=== PATIENT | male | born 1945 | race Caucasian/White ===

== ENCOUNTER → 2017-03-26 | Outpatient (CLI) | payer MEDICARE, BC ==
[2017-03-26 10:57] LABS: Basophils % (A) 1 %; CH 32.3; CHCM 33.6; Eosinophils # (A) 0.3 k/uL (0-0.7); Eosinophils % (A) 5 %; HCT 46.5 % (39.0-53.0); HDW 2.26; HGB 15.4 gm/dL (13.0-17.5); Luc % (Auto) 2; Lymphocytes # (A) 1.5 k/uL (1.0-4.8); Lymphocytes % (A) 27 %; MCH 31.9 pg (25.0-35.0); MCV 96.5 fL (80.0-100.0); Mean Platelet Volume 7.2; Monocytes # (A) 0.5 k/uL (0-1.0); Monocytes % (A) 8 %; Neutrophils # (A) 3.2 k/uL (1.3-7.7); Neutrophils % (A) 57 %; RBC 4.82 m/uL (4.30-5.90); RDW 13.3 % (11.5-15.5); WBC 5.5 k/uL (3.8-10.6); WBC (Perox) 5.61
[2017-03-26 11:51] LABS: ALT 34 U/L (21-72); AST 24 U/L (17-59); Alkaline Phosphatase 30 U/L (38-126); Blood Urea Nitrogen 15 mg/dL (9-20); C Reactive Protein <5.0 mg/L (<10.0); Carbon Dioxide 24 mmol/L (22-30); Cholesterol 143 mg/dL (<200); Creatine Kinase 110 U/L (55-170); Glucose 94 mg/dL (74-99); HDL Cholesterol 47 mg/dL (40-60); Non-African American GFR(MDRD) >60 (>60 ml/min/1.73 sqM); Sodium 136 mmol/L (137-145); Total Bilirubin 0.5 mg/dL (0.2-1.3); Total Protein 6.4 g/dL (6.3-8.2); Uric Acid 4.6 mg/dL (3.5-8.5)
[2017-03-26 11:58] LABS: Anion Gap 9 mmol/L; Chloride 103 mmol/L (98-107)
[2017-03-26 12:09] LABS: Prostate Specific Antigen 1.24 ng/mL (0.00-4.00)
[2017-03-26 13:35] LABS: Erythrocyte Sedimentation Rate 3 mm/hr (0-15)
== END | disposition home or self-care (01) ==
LOC: LABWHC1 10:09
PROVIDERS: ATTEND Internal Medicine
DX: Z00.00 Encounter for general adult medical examination without abnormal findings (principal); E78.5 Hyperlipidemia, unspecified; I10 Essential (primary) hypertension; E55.9 Vitamin D deficiency, unspecified
CPT/HCPCS: 36415; 80053; 80061; 82306; 82550; 83036; 84153; 84443; 84550; 85025; 85652; 86140

== ENCOUNTER 2019-04-05 11:39 | Emergency (ER) | payer MEDICARE ==
[2019-04-05] MEDS ORDERED: SODIUM CHLORIDE 0.9% 1,000 ML IV STA (12:14)
[2019-04-05 12:35] VITALS: RESP 16
[2019-04-05 12:47] LABS: Basophils % (A) 0 %; Eosinophils # (A) 0.2 k/uL (0-0.7); Eosinophils % (A) 3 %; HCT 43.2 % (39.0-53.0); Lymphocytes # (A) 1.4 k/uL (1.0-4.8); Lymphocytes % (A) 18 %; MCHC 34.8 g/dL (31.0-37.0); MCV 92.1 fL (80.0-100.0); Mean Platelet Volume 6.1; Monocytes # (A) 0.5 k/uL (0-1.0); Monocytes % (A) 6 %; Neutrophils # (A) 5.5 k/uL (1.3-7.7); Neutrophils % (A) 72 %; Platelet Count 193 k/uL (150-450); RBC 4.69 m/uL (4.30-5.90); RDW 11.8 % (11.5-15.5); WBC 7.7 k/uL (3.8-10.6)
--- NOTE | 2019-04-05 12:47 | ED ---
Abdominal Pain HPI - General Chief Complaint: Abdominal Pain Stated Complaint: RT ABDOMINAL PAIN Time Seen by Provider: 04/05/19 12:04 Source: patient, RN notes reviewed Mode of arrival: ambulatory Limitations: no limitations - History of Present Illness Initial Comments: This is a 74-year-old male presents emergency Department with chief complaint of right-sided abdominal pain. He's had increase abdominal pain last few days. Patient is concerned as he had to obstructions in the past one was resolved by surgical intervention by Dr. Guzman. Patient has not had a recent colonoscopy no dysuria no hematuria. Patient states she's been very constipated he states he takes stool softener he was given take a laxative but is concerned that he may be developing an obstruction as he had the past. He states he does not feel bloated or distended like usual. No vomiting minimal nausea. - Related Data Home Medications Medication Instructions Recorded Confirmed Allopurinol 100 mg PO DAILY 05/25/15 05/25/15 Aspirin 81 mg PO DAILY 05/25/15 05/25/15 Aspirin 650 mg PO DAILY PRN 05/25/15 05/25/15 Cyanocobalamin [Vitamin B-12] 500 mcg PO DAILY@1200 05/25/15 05/25/15 Losartan [Cozaar] 50 mg PO DAILY 05/25/15 05/25/15 Multivitamin [Men's Multi-Vitamin] 1 tab PO DAILY 05/25/15 05/25/15 Omeprazole 20 mg PO DAILY 05/25/15 05/25/15 Allergies Allergy/AdvReac Type Severity Reaction Status Date / Time No Known Allergies Allergy Verified 05/25/15 21:35 Review of Systems ROS Statement: Those systems with pertinent positive or pertinent negative responses have been documented in the HPI. ROS Other: All systems not noted in ROS Statement are negative. Past Medical History Past Medical History: GERD/Reflux, Hypertension Additional Past Medical History / Comment(s): gout, bowel obstruction, History of Any Multi-Drug Resistant Organisms: None Reported Past Surgical History: Orthopedic Surgery Additional Past Surgical History / Comment(s): bowel obstruction repair, left hand surgery Past Anesthesia/Blood Transfusion Reactions: No Reported Reaction Past Psychological History: No Psychological Hx Reported Smoking Status: Never smoker Past Alcohol Use History: Occasional Past Drug Use History: None Reported - Past Family History Father Family Medical History: Cancer Additional Family Medical History / Comment(s): colon tumor Sister(s) Family Medical History: GERD/Reflux, Hypertension sister 2 Family Medical History: Cancer Additional Family Medical History / Comment(s): breast cancer General Exam Limitations: no limitations General appearance: alert, in no apparent distress Neck exam: Present: normal inspection. Absent: tenderness, meningismus, lymphadenopathy Respiratory exam: Present: normal lung sounds bilaterally. Absent: respiratory distress, wheezes, rales, rhonchi, stridor Cardiovascular Exam: Present: regular rate, normal rhythm, normal heart sounds. Absent: systolic murmur, diastolic murmur, rubs, gallop, clicks GI/Abdominal exam: Present: soft, tenderness (Mild right-sided), normal bowel sounds. Absent: distended, guarding, rebound, rigid Back exam: Absent: CVA tenderness (R), CVA tenderness (L) Neurological exam: Present: alert, oriented X3, CN II-XII intact Course Vital Signs 04/05/19 04/05/19 04/05/19 11:51 12:32 13:47 Temperature 98.1 F 97.4 F L Pulse Rate 60 51 L Respiratory 18 16 16 Rate Blood Pressure 126/78 136/79 O2 Sat by Pulse 98 98 Oximetry Medical Decision Making - Medical Decision Making CT shows no acute abnormality. Patient is in mild constipation. Labwork unremarkable. Patient will be discharged at this time. Return parameters were discussed. - Lab Data Result diagrams: 04/05/19 12:29 04/05/19 12:29 Lab Results 04/05/19 04/05/19 04/05/19 Range/Units 12:29 12:29 13:19 WBC 7.7 (3.8-10.6) k/uL RBC 4.69 (4.30-5.90) m/uL Hgb 15.0 (13.0-17.5) gm/dL Hct 43.2 (39.0-53.0) % MCV 92.1 (80.0-100.0) fL MCH 32.0 (25.0-35.0) pg MCHC 34.8 (31.0-37.0) g/dL RDW 11.8 (11.5-15.5) % Plt Count 193 (150-450) k/uL Neutrophils % 72 % Lymphocytes % 18 % Monocytes % 6 % Eosinophils % 3 % Basophils % 0 % Neutrophils # 5.5 (1.3-7.7) k/uL Lymphocytes # 1.4 (1.0-4.8) k/uL Monocytes # 0.5 (0-1.0) k/uL Eosinophils # 0.2 (0-0.7) k/uL Basophils # 0.0 (0-0.2) k/uL Sodium 137 (137-145) mmol/L Potassium 4.5 (3.5-5.1) mmol/L Chloride 106 (98-107) mmol/L Carbon Dioxide 22 (22-30) mmol/L Anion Gap 9 mmol/L BUN 20 (9-20) mg/dL Creatinine 1.16 (0.66-1.25) mg/dL Est GFR (CKD-EPI)AfAm 71 (>60 ml/min/1.73 sqM) Est GFR (CKD-EPI)NonAf 62 (>60 ml/min/1.73 sqM) Glucose 114 H (74-99) mg/dL Calcium 9.3 (8.4-10.2) mg/dL Total Bilirubin 0.8 (0.2-1.3) mg/dL AST 24 (17-59) U/L ALT 20 L (21-72) U/L Alkaline Phosphatase 34 L (38-126) U/L Total Protein 7.2 (6.3-8.2) g/dL Albumin 4.2 (3.5-5.0) g/dL Lipase 58 (23-300) U/L Urine Color Yellow Urine Appearance Clear (Clear) Urine pH 7.0 (5.0-8.0) Ur Specific [place] 1.017 (1.001-1.035) Urine Protein Negative (Negative) Urine Glucose (UA) Negative (Negative) Urine Ketones Negative (Negative) Urine Blood Negative (Negative) Urine Nitrite Negative (Negative) Urine Bilirubin Negative (Negative) Urine Urobilinogen <2.0 (<2.0) mg/dL Ur Leukocyte Esterase Negative (Negative) Disposition Clinical Impression: Abdominal pain, Constipation Disposition: HOME SELF-CARE Condition: Stable Instructions (If sedation given, give patient instructions): Abdominal Pain (ED) Additional Instructions: Please return to the Emergency Department if symptoms worsen or any other concerns. Is patient prescribed a controlled substance at d/c from ED?: No Referrals: Colten Prasad MD [Primary Care Provider] - 1-2 days Time of Disposition: 14:07
[2019-04-05 12:59] LABS: Albumin 4.2 g/dL (3.5-5.0); Calcium 9.3 mg/dL (8.4-10.2); Potassium 4.5 mmol/L (3.5-5.1); Total Bilirubin 0.8 mg/dL (0.2-1.3); Total Protein 7.2 g/dL (6.3-8.2)
[2019-04-05 13:29] LABS: Appearance,Urine Clear (Clear); Bilirubin,Urine Negative (Negative); Blood,Urine Negative (Negative); Color,Urine Yellow; Glucose,Urine (UA) Negative (Negative); Ketones,Urine Negative (Negative); Leukocyte Esterase,Urine Negative (Negative); Nitrite,Urine Negative (Negative); Protein,Urine Negative (Negative); Specific Gravity,Urine 1.017 (1.001-1.035); Urobilinogen,Urine <2.0 mg/dL (<2.0)
--- NOTE | 2019-04-05 13:38 | CT ---
EXAMINATION TYPE: CT abdomen pelvis w con DATE OF EXAM: 04/05/2019 COMPARISON: CT abdomen and pelvis May 28, 2015 HISTORY: right side pain, constipation CT DLP: 999 mGycm, Automated Exposure Control for Dose Reduction was Utilized. CONTRAST: CT scan of the abdomen and pelvis is performed with oral and with IV Contrast, patient injected with 80 mL of Isovue 300. FINDINGS: LUNG BASES: Bibasilar linear scarring and/or atelectasis. LIVER/GB: Liver is diffusely low dense consistent with fatty infiltration. PANCREAS: No significant abnormality is seen. SPLEEN: No significant abnormality is seen. ADRENALS: No significant abnormality is seen. KIDNEYS: Symmetric cord medullary uptake and excretion without hydronephrosis seen bilaterally. Simpl e appearing 5.3 cm thin-walled cyst posterior laterally mid pole level left kidney redemonstrated.. BOWEL: Evaluation of bowel suboptimal secondary to lack of enteric contrast. No suspicious small or l arge bowel dilatation. Normal-appearing appendix from cecum in the right lower quadrant. Diverticula and slightly redundant sigmoid colon most prominent proximal one half with additional diverticula thr oughout the left colon. No CT evidence for acute diverticulitis. Prostate gland: Upper limits of normal in size with adjacent left-sided phlebolith. LYMPH NODES: No greater than 1cm abdominal or pelvic lymph nodes are appreciated. OSSEOUS STRUCTURES: Facet arthropathy lower lumbar levels. OTHER: No significant additional abnormality is seen. IMPRESSION: No significant new or acute finding is seen to account for patient's clinical symptoms o f right-sided pain and constipation. No bowel obstruction is present.
[2019-04-05 13:47] VITALS: BP 136/79; PULSE 51; TEMP 97.4
== END 2019-04-05 14:10 | disposition home or self-care (01) ==
LOC: EC 11:39
DX: K59.00 Constipation, unspecified (principal); R11.0 Nausea; K21.9 Gastro-esophageal reflux disease without esophagitis; I10 Essential (primary) hypertension; M10.9 Gout, unspecified; Z79.82 Long term (current) use of aspirin; Z79.899 Other long term (current) drug therapy; Z87.19 Personal history of other diseases of the digestive system; Z98.890 Other specified postprocedural states; Z80.0 Family history of malignant neoplasm of digestive organs; Z83.79 Family history of other diseases of the digestive system
CPT/HCPCS: 36415; 80053; 83690; 85025; 81003; 74177; 99284; 96360; Q9967

== ENCOUNTER → 2019-04-08 | Outpatient (CLI) | payer MEDICARE ==
[2019-04-08 09:47] LABS: Basophils % (A) 0 %; Eosinophils # (A) 0.2 k/uL (0-0.7); Eosinophils % (A) 2 %; HGB 14.9 gm/dL (13.0-17.5); Lymphocytes # (A) 1.3 k/uL (1.0-4.8); Lymphocytes % (A) 19 %; MCH 31.6 pg (25.0-35.0); MCHC 33.1 g/dL (31.0-37.0); MCV 95.4 fL (80.0-100.0); Mean Platelet Volume 6.9; Monocytes # (A) 0.6 k/uL (0-1.0); Monocytes % (A) 9 %; Neutrophils # (A) 4.6 k/uL (1.3-7.7); Neutrophils % (A) 65 %; Platelet Count 186 k/uL (150-450); RBC 4.72 m/uL (4.30-5.90); RDW 11.9 % (11.5-15.5)
[2019-04-08 19:50] LABS: ALT 20 U/L (10-49); AST 21 U/L (14-35); African American GFR (CKD) 75.7 (60.0-200.0); Alkaline Phosphatase 43 U/L (41-126); BUN/Creat Ratio 15.45 Ratio (12.00-20.00); Calcium 8.9 mg/dL (8.7-10.3); Carbon Dioxide 27.5 mmol/L (21.6-31.8); Chloride 106 mmol/L (96-109); Chol/HDL Ratio 3.38; Cholesterol 135 mg/dL (0-200); Globulin 2.1 g/dL (1.6-3.3); Glucose 88 mg/dL (70-110); Non-African American GFR(CKD) 65.3 (60.0-200.0); Potassium 4.6 mmol/L (3.5-5.5); Sodium 140 mmol/L (135-145); Total Bilirubin 0.4 mg/dL (0.2-1.2); Total Protein 6.3 g/dL (6.2-8.2); Triglycerides <50.0 mg/dL (0.0-149.0); Uric Acid 4.3 mg/dL (3.7-8.7)
== END | disposition home or self-care (01) ==
LOC: LABWHC1 08:50
PROVIDERS: ATTEND Internal Medicine
DX: Z00.00 Encounter for general adult medical examination without abnormal findings (principal); E78.5 Hyperlipidemia, unspecified; I12.9 Hypertensive chronic kidney disease with stage 1 through stage 4 chronic kidney disease, or unspecified chronic kidney disease; N18.3 Chronic kidney disease, stage 3 (moderate); M10.9 Gout, unspecified; E87.8 Other disorders of electrolyte and fluid balance, not elsewhere classified; N40.0 Benign prostatic hyperplasia without lower urinary tract symptoms
CPT/HCPCS: 36415; 80053; 80061; 84153; 84550; 85025

== ENCOUNTER → 2019-06-12 | Outpatient (CLI) | payer MEDICARE ==
[2019-06-12 14:51] LABS: HCT 43.3 % (39.0-53.0); HGB 14.8 gm/dL (13.0-17.5); MCH 32.2 pg (25.0-35.0); MCHC 34.2 g/dL (31.0-37.0); MCV 94.2 fL (80.0-100.0); Mean Platelet Volume 7.2; Platelet Count 184 k/uL (150-450); RDW 12.2 % (11.5-15.5); WBC 5.4 k/uL (3.8-10.6)
--- NOTE | 2019-06-12 15:10 | XR ---
EXAMINATION TYPE: XR chest 2V DATE OF EXAM: 06/12/2019 COMPARISON: 11/24/2014 HISTORY: Bronchitis and pneumonia TECHNIQUE: Frontal and lateral views of the chest are obtained. FINDINGS: There is no focal air space opacity, pleural effusion, or pneumothorax seen. The cardiac silhouette size is within normal limits. The osseous structures are intact. Mild degenerative talam[place] es of the spine. IMPRESSION: No acute cardiopulmonary process.
[2019-06-12 15:24] LABS: Band Neutrophils % 2 %; Eosinophils # (M) 0.22 k/uL (0-0.7); Lymphocytes # (M) 1.67 k/uL (1.0-4.8); Monocytes # (M) 0.49 k/uL (0-1.0); Neutrophils % (M) 54 %; Nucleated Red Blood Cells 0 /100 WBC (0-0); Total Cells Counted 100
== END | disposition home or self-care (01) ==
LOC: RADXRMAIN 13:57
PROVIDERS: ATTEND Internal Medicine
DX: J06.9 Acute upper respiratory infection, unspecified (principal); J12.9 Viral pneumonia, unspecified
CPT/HCPCS: 71046; 85025

== ENCOUNTER → 2020-04-08 | Outpatient (CLI) | payer MEDICARE ==
[2020-04-08 10:07] LABS: Basophils % (A) 1 %; Eosinophils # (A) 0.3 k/uL (0-0.7); Eosinophils % (A) 7 %; HGB 14.5 gm/dL (13.0-17.5); Lymphocytes # (A) 1.3 k/uL (1.0-4.8); Lymphocytes % (A) 26 %; MCH 32.5 pg (25.0-35.0); MCHC 34.5 g/dL (31.0-37.0); MCV 94.1 fL (80.0-100.0); Mean Platelet Volume 7.1; Monocytes # (A) 0.3 k/uL (0-1.0); Monocytes % (A) 6 %; Neutrophils # (A) 2.9 k/uL (1.3-7.7); Neutrophils % (A) 58 %; Platelet Count 196 k/uL (150-450); RBC 4.46 m/uL (4.30-5.90); RDW 11.8 % (11.5-15.5); WBC 4.9 k/uL (3.8-10.6)
[2020-04-08 12:54] LABS: Erythrocyte Sedimentation Rate 2 mm/hr (0-15)
[2020-04-08 16:05] LABS: ALT 28 U/L (10-49); AST 28 U/L (14-35); African American GFR (CKD) 67.7 (60.0-200.0); Albumin/Globulin Ratio 1.95 (1.60-3.17); Alkaline Phosphatase 40 U/L (41-126); BUN/Creat Ratio 14.17 Ratio (12.00-20.00); C Reactive Protein <0.4 mg/dL (0.0-0.8); Carbon Dioxide 24.7 mmol/L (21.6-31.8); Chloride 107 mmol/L (96-109); Chol/HDL Ratio 3.05; Cholesterol 134 mg/dL (0-200); Globulin 2.1 g/dL (1.6-3.3); Glucose 94 mg/dL (70-110); LDL Cholesterol,Calculated 78.6 mg/dL (0.0-131.0); Magnesium 2.1 mg/dL (1.5-2.4); Non-African American GFR(CKD) 58.4 (60.0-200.0); Potassium 4.7 mmol/L (3.5-5.5); Sodium 137 mmol/L (135-145); Total Bilirubin 0.6 mg/dL (0.3-1.2); Total Protein 6.2 g/dL (6.2-8.2); Uric Acid 5.3 mg/dL (3.7-8.7)
== END | disposition home or self-care (01) ==
LOC: LABWHC1 08:21
PROVIDERS: ATTEND Internal Medicine
DX: Z00.00 Encounter for general adult medical examination without abnormal findings (principal); I10 Essential (primary) hypertension; E78.5 Hyperlipidemia, unspecified; D64.9 Anemia, unspecified; N40.0 Benign prostatic hyperplasia without lower urinary tract symptoms; E87.8 Other disorders of electrolyte and fluid balance, not elsewhere classified; M10.9 Gout, unspecified
CPT/HCPCS: 36415; 80053; 80061; 83735; 84153; 84443; 84550; 85025; 85652; 86140

== ENCOUNTER → 2020-05-05 | Outpatient (CLI) | payer MEDICARE ==
--- NOTE | 2020-05-05 13:26 | US ---
EXAMINATION TYPE: US groin RT DATE OF EXAM: 05/05/2020 COMPARISON: NONE CLINICAL HISTORY: 75-year-old male R59.9 LYMPHADENOPATHY. Groin lump. TECHNIQUE: Targeted ultrasound examination of the right inguinal region. FINDINGS: Clinic Md Associate note: No abnormalities visualized. Review of images shows no lymphadenopathy or abnormal fluid collection. IMPRESSION: No discrete sonographic abnormality identified upon scanning of the right inguinal region.
--- NOTE | 2020-05-05 13:28 | US ---
EXAMINATION TYPE: US groin LT DATE OF EXAM: 05/05/2020 COMPARISON: NONE CLINICAL HISTORY: 75-year-old male R59.9 LYMPHADENOPATHY. Left groin lump. TECHNIQUE: Sonographic images of the left inguinal region with particular attention to the palpable s ite. FINDINGS: There is a borderline sized solitary lymph node measuring 1.8 x 1.5 x 0.9 cm in the inguinal region o n the left. No other mass or abnormal fluid collection identified. IMPRESSION: Solitary borderline enlarged left inguinal lymph node corresponding to the palpable site measuring 1. 5 cm short axis. This is nonspecific and may be reactive/post inflammatory. Clinical follow-up recomm ended. If the lymph node persists or enlarges, the area can be rescanned.
== END | disposition home or self-care (01) ==
LOC: RADUSWWP 10:58
PROVIDERS: ATTEND Internal Medicine
DX: R59.0 Localized enlarged lymph nodes (principal); Z88.1 Allergy status to other antibiotic agents

== ENCOUNTER 2020-12-29 10:19 | Observation (INO) | payer MEDICARE ==
[2020-12-29] MEDS ORDERED: SODIUM CHLORIDE 0.9% 500 ML 500 ML IV STA (11:06)
--- NOTE | 2020-12-29 11:12 | ED ---
Dizziness HPI - General Chief Complaint: Dizziness Stated Complaint: Dizziness/Numbness on Lt Side Time Seen by Provider: 12/29/20 10:53 Source: patient, family, RN notes reviewed, old records reviewed Mode of arrival: wheelchair Limitations: no limitations - History of Present Illness Initial Comments: 75-year-old well-appearing white male, alert and oriented 4, presents to the emergency room with his family member complaining of intermittent left-sided numbness with lightheadedness. Patient states that on Sunday he was at a restaurant and had one beer. He states that when he got up to walk out of the restaurant he became lightheaded with some left-sided numbness including his arm and leg. Patient states he had to stand and wait just a few minutes to be able to walk but then resolved. He denies any headache at this time. Patient states that yesterday it happened again where he had left-sided numbness with lightheadedness again only lasting a few minutes. He states this is not happened to him before. He denies any head injuries or any loss of consciousness and he denies any headaches. He does take medicine for high blood pressure. He has no symptoms today MD Complaint: dizziness, lightheadedness, other (Left-sided numbness) -: days(s) (3) Timing: sudden onset, intermittent, now resolved Description: lightheadedness, near-syncope History of Same: No History of Trauma: No Worsens With: nothing Associated Symptoms: denies other symptoms - Related Data Home Medications Medication Instructions Recorded Confirmed Allopurinol 100 mg PO DAILY 05/25/15 12/29/20 Aspirin 81 mg PO DAILY 05/25/15 12/29/20 Cyanocobalamin [Vitamin B-12] 500 mcg PO DAILY 05/25/15 12/29/20 Multivitamin [Men's Multi-Vitamin] 1 tab PO DAILY 05/25/15 12/29/20 Losartan Potassium [Cozaar] 100 mg PO DAILY 12/29/20 12/29/20 amLODIPine [Norvasc] 5 mg PO HS 12/29/20 12/29/20 Allergies Allergy/AdvReac Type Severity Reaction Status Date / Time No Known Allergies Allergy Verified 12/29/20 12:12 Review of Systems ROS Statement: Those systems with pertinent positive or pertinent negative responses have been documented in the HPI. ROS Other: All systems not noted in ROS Statement are negative. Past Medical History Past Medical History: GERD/Reflux, Hypertension Additional Past Medical History / Comment(s): gout, bowel obstruction, History of Any Multi-Drug Resistant Organisms: None Reported Past Surgical History: Orthopedic Surgery Additional Past Surgical History / Comment(s): bowel obstruction repair, left hand surgery Past Anesthesia/Blood Transfusion Reactions: No Reported Reaction Past Psychological History: No Psychological Hx Reported Past Alcohol Use History: Occasional Past Drug Use History: None Reported - Past Family History Father Family Medical History: Cancer Additional Family Medical History / Comment(s): colon tumor Sister(s) Family Medical History: GERD/Reflux, Hypertension sister 2 Family Medical History: Cancer Additional Family Medical History / Comment(s): breast cancer General Exam Limitations: no limitations General appearance: alert, in no apparent distress Head exam: Present: atraumatic, normocephalic, normal inspection Eye exam: Present: normal appearance, PERRL, EOMI. Absent: scleral icterus, conjunctival injection, periorbital swelling ENT exam: Present: normal exam, normal oropharynx, mucous membranes moist Neck exam: Present: normal inspection, full ROM. Absent: tenderness, meningismus, lymphadenopathy, thyromegaly Respiratory exam: Present: normal lung sounds bilaterally. Absent: respiratory distress, wheezes, rales, rhonchi, stridor, decreased breath sounds Cardiovascular Exam: Present: bradycardia, normal heart sounds. Absent: JVD GI/Abdominal exam: Present: soft, normal bowel sounds. Absent: distended, tenderness, guarding, rebound, rigid Extremities exam: Present: normal inspection, full ROM, normal capillary refill. Absent: tenderness, pedal edema, joint swelling, calf tenderness Back exam: Present: normal inspection, full ROM. Absent: tenderness, CVA tenderness (R), CVA tenderness (L), muscle spasm, paraspinal tenderness, v ertebral tenderness, rash noted Neurological exam: Present: alert, oriented X3, CN II-XII intact Expanded Patient oriented to: Present: place, time. Absent: person Speech: Present: fluid speech Cranial nerves: EOM's Intact: Normal, Gag Reflex: Normal, Tongue Deviation: Normal Cerebellar function: Finger to Nose: Normal, Heel to [place]: Normal Motor strength exam: RUE: 5, LUE: 5, RLE: 5, LLE: 5 Eye Response: (4) open spontaneously Motor Response: (6) obeys commands Verbal Response: (5) oriented [place] Total: 15 Psychiatric exam: Present: normal affect, normal mood Skin exam: Present: warm, dry, intact, normal color. Absent: rash, cyanosis, diaphoretic, petechiae, pallor Course Vital Signs 12/29/20 10:31 Temperature 97.9 F Pulse Rate 58 L Respiratory 18 Rate Blood Pressure 134/74 O2 Sat by Pulse 98 Oximetry EKG Findings - EKG Results: EKG: sinus rhythm EKG shows: bradycardia (Ventricular rate 56, MD interval 0.126, QRS of 0.94, QTC of 0.401) Medical Decision Making - Medical Decision Making Chest x-ray is negative for any acute cardiopulmonary process. CT head shows no acute intracranial abnormality. CT a shows mild atherosclerotic narrowing within the right carotid siphon, no large vessel intracranial arterial occlusion significant stenosis or aneurysmal change seen. CT angiogram of the neck shows mild less than 20% stenosis to the proximal left ICA withhemodynamically significant carotid or vertebral spine arterial stenosis on either side. Troponin is negative at 0.012 EKG shows sinus bradycardia at 56. Patient will be admitted to the hospital to Dr. Prasad who requests vascular and neuro consults. Patient has been without paresthesias while in the emergency room setting. He has no focal neurological symptoms at this time. Case discussed with Dr. Lobo. - Lab Data Result diagrams: 12/29/20 12:05 12/29/20 12:05 Lab Results 12/29/20 12/29/20 12/29/20 Range/Units 12:05 12:05 12:05 WBC 6.4 (3.8-10.6) k/uL RBC 4.54 (4.30-5.90) m/uL Hgb 15.4 (13.0-17.5) gm/dL Hct 44.0 (39.0-53.0) % MCV 97.1 (80.0-100.0) fL MCH 34.0 (25.0-35.0) pg MCHC 35.0 (31.0-37.0) g/dL RDW 12.7 (11.5-15.5) % Plt Count 210 (150-450) k/uL MPV 7.3 Neutrophils % 62 % Lymphocytes % 23 % Monocytes % 8 % Eosinophils % 5 % Basophils % 1 % Neutrophils # 3.9 (1.3-7.7) k/uL Lymphocytes # 1.4 (1.0-4.8) k/uL Monocytes # 0.5 (0-1.0) k/uL Eosinophils # 0.3 (0-0.7) k/uL Basophils # 0.0 (0-0.2) k/uL PT 10.6 (9.0-12.0) sec INR 1.0 (<1.2) Sodium 136 L (137-145) mmol/L Potassium 4.6 (3.5-5.1) mmol/L Chloride 104 (98-107) mmol/L Carbon Dioxide 25 (22-30) mmol/L Anion Gap 7 mmol/L BUN 18 (9-20) mg/dL Creatinine 1.17 (0.66-1.25) mg/dL Est GFR (CKD-EPI)AfAm 70 (>60 ml/min/1.73 sqM) Est GFR (CKD-EPI)NonAf 60 (>60 ml/min/1.73 sqM) Glucose 95 (74-99) mg/dL Calcium 9.3 (8.4-10.2) mg/dL Total Bilirubin 0.6 (0.2-1.3) mg/dL AST 29 (17-59) U/L ALT 21 (4-49) U/L Alkaline Phosphatase 34 L (38-126) U/L Troponin I (0.000-0.034) ng/mL Total Protein 6.8 (6.3-8.2) g/dL Albumin 4.0 (3.5-5.0) g/dL Urine Color Urine Appearance (Clear) Urine pH (5.0-8.0) Ur Specific [place] (1.001-1.035) Urine Protein (Negative) Urine Glucose (UA) (Negative) Urine Ketones (Negative) Urine Blood (Negative) Urine Nitrite (Negative) Urine Bilirubin (Negative) Urine Urobilinogen (<2.0) mg/dL Ur Leukocyte Esterase (Negative) 12/29/20 12/29/20 Range/Units 12:05 13:34 WBC (3.8-10.6) k/uL RBC (4.30-5.90) m/uL Hgb (13.0-17.5) gm/dL Hct (39.0-53.0) % MCV (80.0-100.0) fL MCH (25.0-35.0) pg MCHC (31.0-37.0) g/dL RDW (11.5-15.5) % Plt Count (150-450) k/uL MPV Neutrophils % % Lymphocytes % % Monocytes % % Eosinophils % % Basophils % % Neutrophils # (1.3-7.7) k/uL Lymphocytes # (1.0-4.8) k/uL Monocytes # (0-1.0) k/uL Eosinophils # (0-0.7) k/uL Basophils # (0-0.2) k/uL PT (9.0-12.0) sec INR (<1.2) Sodium (137-145) mmol/L Potassium (3.5-5.1) mmol/L Chloride (98-107) mmol/L Carbon Dioxide (22-30) mmol/L Anion Gap mmol/L BUN (9-20) mg/dL Creatinine (0.66-1.25) mg/dL Est GFR (CKD-EPI)AfAm (>60 ml/min/1.73 sqM) Est GFR (CKD-EPI)NonAf (>60 ml/min/1.73 sqM) Glucose (74-99) mg/dL Calcium (8.4-10.2) mg/dL Total Bilirubin (0.2-1.3) mg/dL AST (17-59) U/L ALT (4-49) U/L Alkaline Phosphatase (38-126) U/L Troponin I <0.012 (0.000-0.034) ng/mL Total Protein (6.3-8.2) g/dL Albumin (3.5-5.0) g/dL Urine Color Yellow Urine Appearance Clear (Clear) Urine pH 7.0 (5.0-8.0) Ur Specific [place] 1.020 (1.001-1.035) Urine Protein Negative (Negative) Urine Glucose (UA) Negative (Negative) Urine Ketones Negative (Negative) Urine Blood Negative (Negative) Urine Nitrite Negative (Negative) Urine Bilirubin Negative (Negative) Urine Urobilinogen <2.0 (<2.0) mg/dL Ur Leukocyte Esterase Negative (Negative) Disposition Clinical Impression: TIA (transient ischemic attack), Near syncope Disposition[facility] Condition: Good Decision Date: 12/29/20 Decision Time: 14:43
[2020-12-29 12:20] LABS: Basophils % (A) 1 %; Eosinophils # (A) 0.3 k/uL (0-0.7); Eosinophils % (A) 5 %; HGB 15.4 gm/dL (13.0-17.5); Lymphocytes # (A) 1.4 k/uL (1.0-4.8); Lymphocytes % (A) 23 %; MCV 97.1 fL (80.0-100.0); Mean Platelet Volume 7.3; Monocytes # (A) 0.5 k/uL (0-1.0); Monocytes % (A) 8 %; Neutrophils # (A) 3.9 k/uL (1.3-7.7); Neutrophils % (A) 62 %; Platelet Count 210 k/uL (150-450); RBC 4.54 m/uL (4.30-5.90); RDW 12.7 % (11.5-15.5); WBC 6.4 k/uL (3.8-10.6)
[2020-12-29 12:28] LABS: Prothrombin Time 10.6 sec (9.0-12.0)
[2020-12-29 12:34] LABS: Calcium 9.3 mg/dL (8.4-10.2); Potassium 4.6 mmol/L (3.5-5.1); Total Bilirubin 0.6 mg/dL (0.2-1.3); Total Protein 6.8 g/dL (6.3-8.2)
--- NOTE | 2020-12-29 13:34 | XR ---
EXAMINATION TYPE: XR chest 2V DATE OF EXAM: 12/29/2020 COMPARISON: 06/12/2019 HISTORY: Shortness of breath TECHNIQUE: Frontal and lateral views of the chest are obtained. FINDINGS: Scattered senescent parenchymal changes noted. Hyperinflation compatible with COPD. No evidence for infiltrate. No evidence for atelectasis. Heart size is stable. Mediastinal structures are stable and grossly unremarkable. No evidence for hilar prominence. Degenerative changes dorsal spine. IMPRESSION: 1. No evidence for acute pulmonary disease.
--- NOTE | 2020-12-29 14:03 | CT ---
EXAMINATION TYPE: CT head without contrast CT angio head neck DATE OF EXAM: 12/29/2020 COMPARISON: None HISTORY: 75-year-old male with TIA, Numbness on left side body, dizziness TECHNIQUE: Contiguous axial scanning of the head initially without IV contrast. Subsequent scanning o f the head and neck performed with IV Contrast, patient injected with 65 mL of Isovue 370. Coronal/sa gittal MIP reconstructions performed. 3-D reconstructions generated on a dedicated workstation. CT DLP: 1620.5 mGycm Automated exposure control for dose reduction was used. FINDINGS: CT HEAD WITHOUT CONTRAST: No evidence for acute intracranial hemorrhage, acute ischemic change, mass, mass effect, midline shif t, or extra-axial fluid collection. No hydrocephalus. No effacement of cerebral sulci or basal subara chnoid cisterns. Schmitt-white matter differentiation is maintained. Moderate mucosal thickening posterior ethmoid air cells on both sides. Rightward nasal septal deviati on. Orbits and globes are intact. CTA HEAD: Both vertebral arteries are patent. The V4 segment right vertebral artery after the PICA takeoff beco mes hypoplastic. Basilar artery is patent. Hypoplastic P1 segment left posterior cerebral artery with a persistent origin. Otherwise, the posterior circulation is patent. Mild atherosclerotic narrowing within the cavernous right internal carotid artery. Otherwise, the internal carotid arteries are patent as is the remainder of the anterior circulation. No aneurysmal change is identified. CTA NECK: Conventional arch was a branching anatomy. The bilateral vertebral artery origins are patent. The ves sels are codominant and patent throughout their course. The right common carotid artery is patent. Mild atherosclerotic change at the right carotid bulb. No significant narrowing is identified. The left common carotid artery is patent. There is mild atherosclerotic plaque and calcification within the proximal left internal carotid natalie ry with mild, less than 20% narrowing proximal left ICA. NASCET criteria was utilized. IMPRESSION: HEAD: 1. NO ACUTE INTRACRANIAL ABNORMALITY SEEN. CTA HEAD: 2. SOME CONGENITAL VARIATION MENTIONED ABOVE. 3. THERE IS MILD ATHEROSCLEROTIC NARROWING WITHIN THE RIGHT CAROTID SIPHON. OTHERWISE, NO LARGE VESSE L INTRACRANIAL ARTERIAL OCCLUSION, SIGNIFICANT STENOSIS, OR ANEURYSMAL CHANGE IS SEEN. CTA NECK: 4. 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 5. NO HEMODYNAMICALLY SIGNIFICANT CAROTID OR VERTEBRAL ARTERY STENOSIS ON EITHER SIDE.
[2020-12-29 14:12] LABS: Appearance,Urine Clear (Clear); Bilirubin,Urine Negative (Negative); Blood,Urine Negative (Negative); Color,Urine Yellow; Glucose,Urine (UA) Negative (Negative); Ketones,Urine Negative (Negative); Leukocyte Esterase,Urine Negative (Negative); Nitrite,Urine Negative (Negative); Protein,Urine Negative (Negative); Urobilinogen,Urine <2.0 mg/dL (<2.0)
[2020-12-29] MEDS ORDERED: NALOXONE 0.4 MG/ML 1 ML VIAL IV PRN (15:55)
[2020-12-29] MEDS ORDERED: ACETAMINOPHEN TAB 325 MG TAB PO PRN (15:55)
[2020-12-29] MEDS ORDERED: CLOPIDOGREL 75 MG TAB PO STA (16:22)
[2020-12-29] MEDS ORDERED: allopurinoL 100 MG TAB PO SCH (16:30)
--- NOTE | 2020-12-29 18:14 | HP ---
HISTORY AND PHYSICAL HISTORY AND PHYSICAL ON OBSERVATION STATUS: DATA: Height is 5 feet 11 inches, weight 83.915 kg, his BSA is 2.04 m2 and BMI 25.8 kg/m2. ALLERGIES: Unknown. CHIEF COMPLAINT: The patient had recurrent incident of dizziness and feeling numb in his left upper arm and lower arm and recurrent occurred on Sunday and occurred again subsequently on the golf course, on Sunday he was on his boat. HISTORY OF PRESENT ILLNESS: Mr. Hays who is a 75-year-old white male and has a specific experience and that has not happen before. He was out boating with his boat and he has also a few friends on the boat and he anchored in [place] and went to the restaurant and subsequently while he was in the restaurant, he felt that his left arm and left leg numb and he become dizzy as well and felt that he is slight clumsy. He did not think of it much and went away and it took few minutes and recovered. He returned back to [place]. Yesterday he had the second recurrence of his events and he had the same place, his left upper arm and left lower extremities and he felt even at that time, clumsy, and he could not do his play the game on the golf course and he was missing as it is his unusual. His feeling of numbness and tingling and unstable on the feet lasted about 1 hour to half an hour and then recovered. 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 Also found that he has both vertebral arteries are patent, but the V4 segment on the right vertebral artery after the PICA takeoff become hypoplastic. Apparently the patient has some abnormalities with [place] in the brain and with the recurrent TIA. With that purpose, the patient admitted as observation with the consultation of the vascular surgeon as well as consultation with the Neurology, Dr. Paul, the neurology hospitalist. Request was ordered today on December 29. Meanwhile, as I discussed with the patient in detail, we will be starting him on Plavix temporary until seen by done by the neurologist as well as a vascular surgeon and if there is any adding or subtracting. On this admission as vital signs indicating that his blood pressure on arrival 134/74 with the temperature 97.9 orally and heart rate was 58 beats per minute and respiratory rate was 18 and the oxygen was 98%. Subsequently the blood pressure went up to 160/85, but he did not take his medication. We will be reordering his medication. PAST MEDICAL HISTORY: He had history of hypertension, history of gouty attack, history of other history hypertension, which has been fairly controlled. Past medical history also he had history of abdominal pain. History of small bowel obstruction and history of near syncopal episode and TIA in the past, but this feeling is new to him. His vaccination: He had history of influenza vaccine and vaccination and pneumonia vaccine 23 in 2015 according to the record of the hospital, but also he had vaccination after that, but it is not available to me at this time of dictation. SOCIAL HISTORY: He never smoked in the past. REVIEW OF SYSTEM: NEUROPSYCHIATRY: He has no history of depression or anxiety. CARDIOVASCULAR: No evidence of heart attack or IA or angina in the past. He had history of bradycardia and will be obtaining echocardiogram. Meanwhile to see if any other abnormalities encountered. He had a tetanus vaccine and diphtheria and he has also influenza vaccine and pneumococcal vaccine. RESPIRATORY: No cough or expectoration and no smoking. GI: No diarrhea or abdominal pain. He had history of constipation, resolved with the OTC treatment. MUSCULOSKELETAL: No symptoms except the recent symptoms with feeling numbness on the left side of the upper arm and leg, which is recurrent and feeling dizzy and unsteady gait. The rest of the 14 bullets were negative. No added to the treatment. On the current discussion and physical exam in the ER room 22: After discussion and evaluation, and I gave him the option and with my recommendation to stay in the hospital for the observation and further testing needs to be done to evaluation of [place] of the brain, as well as the carotid duplex study as well as the echocardiogram and MRI of the brain to clarify with contrast. PHYSICAL EXAMINATION: Patient is at the time of the exam his vital signs stable and no hypotension and no postural changes and his numbness and tingling in the left upper extremity and lower extremities resolved and there is no currently sensory or motor deficits. His head was normocephalic, atraumatic. The pupils equal, reactive. Conjunctivae were pink. Sclerae were nonicteric. Extraocular muscle movement was intact. Oropharynx natural teeth and hearing are normal. NECK was supple. No JVD. No thyromegaly. No lymphadenopathy and trachea midline. CHEST was clear to auscultation and percussion. No wheezes, no rhonchi. HEART: PMI in the 5th intercostal space. Normal S1, S2. No gallop. ABDOMEN was soft, nontender, positive bowel sounds. EXTREMITIES: Good perfusion bilaterally and no edema and he had history of mild arthritis and history of gout in the past. No acute event at this time. ASSESSMENT: Recurrent episodic transient ischemic attack which lasts a few minutes to [address] angiogram was abnormal with the abnormalities in the posterior cerebral arteries as well as the vertebral arteries and however I do not see any comment on the carotid arteries in the report and we will be obtaining as well the carotid duplex study as well as consultation with Dr. Brasher as well as consultation with the neurologist. Starting also on Plavix added to 75 mg once a day as well as add 81 mg of aspirin until seen by the consulting and further investigation needed or stability of the patient or for further findings. MMODL / IJN: [id number] /
[2020-12-29] MEDS: SODIUM CHLORIDE 0.9% 1,000 ML IV SCH ×2 (19:00→21:34)
[2020-12-29] MEDS ORDERED: amLODIPine 5 MG TAB PO SCH (21:00)
--- NOTE | 2020-12-29 21:50 | US ---
EXAMINATION TYPE: US carotid duplex BILAT DATE OF EXAM: 12/29/2020 COMPARISON: CT CLINICAL HISTORY: TIA, dizziness.. TIA, dizziness, hypertension. EXAM MEASUREMENTS: RIGHT: Peak Systolic Velocity (PSV) cm/sec ----- Right CCA: 73.2 ----- Right ICA: 83.9 ----- Right ECA: 70.9 ICA/CCA ratio: 1.1 RIGHT: End Diastole cm/sec ----- Right CCA: 13.8 ----- Right ICA: 22.3 ----- Right ECA: 5.5 LEFT: Peak Systolic Velocity (PSV) cm/sec ----- Left CCA: 90.5 ----- Left ICA: 94.9 ----- Left ECA: 89.4 ICA/CCA ratio: 1.0 LEFT: End Diastole cm/sec ----- Left CCA: 14.6 ----- Left ICA: 20.1 ----- Left ECA: 8.0 VERTEBRALS (direction of flow): Right Vertebral: Antegrade Left Vertebral: Antegrade Rhythm: Normal Intimal thickening bilaterally. Minimal plaque seen in right carotid bulb and left ICA. No elevated v elocities at this time. Incidentally seen normal right neck lymph node. IMPRESSION: No hemodynamically significant stenosis. Any stenosis that may be present is less than 50%. NASCET criteria was used in interpretation of this exam? Criteria for Assigning % of Stenosis / Diameter reduction (Estimation based on the indirect measurements of the internal carotid artery velocities (ICA PSV). 1. Normal (no stenosis)=ICA PSV < 125 cm/s: ratio < 2.0: ICA EDV<40 cm/s. 2. Less than 50% stenosis=ICA PSV < 125 cm/s: ratio < 2.0: ICA EDV<40 cm/s. 3. 50 to 69% stenosis=ICA PSV of 125 to 230 cm/s: ration 2.0 ? 4.0: ICA EDV 40-100 cm/s. 4. Greater than 70% stenosis to near occlusion= ICA PSV > 230 cm/s: ratio > 4.0: ICA EDV > 100 cm/s. 5. Near occlusion= ICA PSV velocities may be low or undetectable: variable ratio and ICA EDV. 6. Total occlusion=unable to detect flow.
--- NOTE | 2020-12-29 22:14 | MR ---
EXAMINATION TYPE: MR brain and iac wo/w con DATE OF EXAM: 12/29/2020 COMPARISON: None HISTORY: TIA, posterior circulation stenosis, right carotid. CONTRAST: Standard multiplanar, multisequence MRI departmental protocol utilizing 8 mL intravenous Gadavist elizabeth olinium contrast. There is cerebral cortical atrophy. There is no mass effect nor midline shift. There is no evidence o f intracranial hemorrhage. Diffusion images show no evidence of an acute infarct. The corpus callosum is intact. Brainstem appears intact. There is no evidence of orbital mass. Sella turcica appears normal. Images through the posterior fossa show normal internal auditory canals. The acoustic nerve and vesti bular nerves appear normal. There is no evidence of cerebellopontine angle mass. Contrast images show no pathologic enhancement. There is normal enhancement of the venous sinuses. Op tic chiasm appears normal. IMPRESSION: There is mild cerebral atrophy. Otherwise negative MR scan of the brain. No focal infarct.
[2020-12-30 03:26] VITALS: RESP 15
--- NOTE | 2020-12-30 07:28 | ECHOF ---
Referral Reason:Bradycardia, TIA. Hypertension MEASUREMENTS -------- HEIGHT: 180.3 cm WEIGHT: 83.9 kg BP: 160/85 RVIDd: 3.1 cm (< 3.3) IVSd: 1.1 cm (0.6 - 1.1) LVIDd: 4.8 cm (3.9 - 5.3) LVPWd: 1.1 cm (0.6 - 1.1) IVSs: 1.6 cm LVIDs: 3.3 cm LVPWs: 1.6 cm LA Diam: 3.9 cm (2.7 - 3.8) LAESV Index (A-L): 32.08 ml/m Ao Diam: 3.4 cm (2.0 - 3.7) AV Cusp: 2.1 cm (1.5 - 2.6) MV EXCURSION: 12.703 mm (> 18.000) MV EF SLOPE: 71 mm/s (70 - 150) EPSS: 0.9 cm MV E Alex: 0.97 m/s MV DecT: 244 ms MV A Alex: 0.97 m/s MV E/A Ratio: 1.00 AR PHT: 605 ms RAP: 5.00 mmHg RVSP: 38.07 mmHg FINDINGS -------- The left ventricular size is normal. There is borderline concentric left ventricular hypertrophy. Overall left ventricular systolic function is normal with, an EF between 60 - 65 %. The right ventricle is normal in size. LA is midly dilated 29-33ml/m2. The right atrium is normal in size. Interatrial and interventricular septum intact. There is mild aortic valve sclerosis. There is mild aortic regurgitation. The mitral valve leaflets are mildly thickened. Mild mitral annular calcification present. Mild m itral regurgitation is present. Mild tricuspid regurgitation present. There is mild pulmonary hypertension. The right ventricular systolic pressure, as measured by Doppler, is 38.07mmHg. Trace/mild (physiologic) pulmonic regurgitation. The aortic root size is normal. Normal inferior vena cava with normal inspiratory collapse consistent with estimated right atrial pre ssure of 5 mmHg. There is no pericardial effusion. CONCLUSIONS -------- 1. The left ventricular size is normal. 2. There is borderline concentric left ventricular hypertrophy. 3. Overall left ventricular systolic function is normal with, an EF between 60 - 65 %. 4. LA is midly dilated 29-33ml/m2. 5. There is mild aortic valve sclerosis. 6. There is mild aortic regurgitation. 7. The mitral valve leaflets are mildly thickened. 8. Mild mitral annular calcification present. 9. Mild mitral regurgitation is present. 10. Mild tricuspid regurgitation present. 11. There is mild pulmonary hypertension. 12. The right ventricular systolic pressure, as measured by Doppler, is 38.07mmHg. 13. Trace/mild (physiologic) pulmonic regurgitation. 14. There is no pericardial effusion. GREEN MARKETER: MYAH Abdi
[2020-12-30 08:14] VITALS: BP 142/71; PULSE 52; TEMP 97.7
[2020-12-30] MEDS ORDERED: allopurinoL 100 MG TAB PO SCH (09:00)
[2020-12-30] MEDS ORDERED: ASPIRIN 81 MG PO SCH (09:00)
[2020-12-30] MEDS ORDERED: MULTIVITAMINS, THERA 1 EACH TAB PO SCH (09:00)
[2020-12-30] MEDS ORDERED: LOSARTAN 50 MG TAB PO SCH (09:00)
[2020-12-30] MEDS ORDERED: CYANOCOBALAMIN 500 MCG TAB PO SCH (09:00)
[2020-12-30] MEDS ORDERED: CLOPIDOGREL 75 MG TAB PO STA (12:51)
--- NOTE | 2020-12-30 13:11 | CONS ---
CONSULTATION Mr. Hays is a 75-year-old gentleman who has been admitted to [facility]. Patient had an episode of left arm and left leg numbness and he became dizzy. This happened a few times. No history of vision loss or speech problems. He had a complete stroke workup, including CT scan of the carotids, which noted no hemodynamically significant stenosis. The patient also had a CT of the brain which showed a hyperplastic segment of the left posterior cerebral artery and vertebral artery has at V4 segment. Apparently the patient has some abnormality with the [place] with recurrent TIA. MEDICAL HISTORY: The patient has a history of hypertension, history of a gouty attack in the past, history of hypertension which is controlled with medication. The patient also has a history of abdominal pain and small bowel obstruction in the past. SOCIAL HISTORY: He never smoked. PHYSICAL EXAMINATION: Patient was seen in his room. NECK: Supple. No bruit appreciated. CHEST: Clear. ABDOMEN: Soft. Femorals are present. Patient has normal motor function in upper and lower extremities. PLAN: At this point, small plaque is noted in the carotid arteries; no hemodynamically significant stenosis. Most of his symptoms came from the [place]. The patient will be seen by the neurologist. Discussed with Dr. Prasad in detail. The patient is on Plavix. We will follow with you. MMODL / IJN: [id number] /
--- NOTE | 2020-12-30 13:24 | P.DS ---
Providers Date of admission: 12/29/20 14:14 Expected date of discharge: 12/30/20 (TIA, recurrent dizziness, posterior ci rculation and normally) Attending physician: Colten Prasad Consults: 12/29/20 15:56 Consult Physician Urgent Consulting Provider: Jesus Paul Consult Reason/Comments: tia Do you want consulting provider notified?: Yes Consult Physician Urgent Consulting Provider: Julio Brasher Consult Reason/Comments: tia Do you want consulting provider notified?: Yes Primary care physician: Colten Prasad Visit the discharge summary date of service 12/30/2020. Admission on 12/29/2020 discharge on 12/30/2020. Observation status. Final diagnosis: #1 TIAs #2 recurrent dizziness #3 and normally of the posterior circulation. Consulting physician: #1 Dr. Carmona vascular surgeon. #2 Dr. Ames the inpatient neurologist. Testing done: #1 chest x-ray in the ER #2 angiogram of the head and brain #3 ultrasound of the carotid bilateral #4 echocardiogram. #5 MRI of brain. For further investigation not needed. Consulting physician. Presentation in the ER: Recurrent dizziness with near syncope. Hospital course: Patient admitted on observation status with monitoring for for further episodes of dizziness or advances on the TIA, with the underlying history near syncopal episode as well as TIA and recurrent dizziness. Patient had further investigation as mentioned above and the consultation with the neurologist and vascular surgeon. Patient has no symptoms at the time of the exam and no residual effect neurologically, and vital signs stable. Exam on discharge: Patient has no for further symptoms, he is able to go to the bathroom without dizziness, no evidence of postural hypotension, his at bedside. Discussed with him the future plan and the discharge. On exam: Head was normocephalic and atraumatic pupil was equal reactive conjunctiva was pink sclera was nonicteric extraocular muscle movement intact Oropharynx was normal able to eat and swallow with no abnormalities Neck was supple no JVD no thyromegaly no lymphadenopathy trachea midline. Chest was clear to auscultation and percussion and Heart was regular sinus rhythm and his echo cardiogram indicating good ejection fraction minimal valvular heart disease. Abdomen is soft positive bowel sounds no tenderness in the 4 quadrant no palpable masses. Extremities no edema and positive pulses and normal lower extremities and upper extremities with normal reflexes. Neurologically: No lateralizing sign and no tremor and no neuro deficit. Assessment: Patient stable general condition with the underlying above diagnosis associated with also near syncopal episode the monitor car operator was negative for arrhythmia, Seen by the neurologist discussed with them Dr. Ames the finding and no further testing needed, he recommended to continue with the Plavix 75 mg daily and discontinue the aspirin and we discussed the lipid profile and his last lipid profile was 78 and he preferred that to be below 70 and for that reason patient started on atorvastatin "Lipitor " 10 mg at at bedtime patient will have soon complete physical and he has at that time the repeat of his lipid profile and we'll be checking his level at this time. Plan: Patient will be discharged home today with a new prescription sent to [facility] for the atorvastatin 10 mg at at bedtime 30 with 3 refills as well he is on started on Plavix 75 mg once a daily with 30 and 3 refills, and discontinuation of aspirin the recommendation of Dr. Ames the neurologist Follow-up evaluation in 3-5 days next week for follow-up post discharge from the hospital. Patient Condition at Discharge: Good Plan - Discharge Summary Discharge Rx Participant: No New Discharge Prescriptions: New Atorvastatin Calcium [Lipitor] 10 mg PO HS #30 tab Clopidogrel [Plavix] 75 mg PO ONCE #30 tab Acetaminophen Tab [Tylenol] 650 mg PO Q6HR PRN tab PRN Reason: Mild Pain Or Fever > 100.5 Continue Allopurinol 100 mg PO DAILY Multivitamin [Men's Multi-Vitamin] 1 tab PO DAILY Cyanocobalamin [Vitamin B-12] 500 mcg PO DAILY Losartan Potassium [Cozaar] 100 mg PO DAILY amLODIPine [Norvasc] 5 mg PO HS Discontinued Aspirin 81 mg PO DAILY Discharge Medication List Allopurinol 100 mg PO DAILY 05/25/15 [History] Cyanocobalamin [Vitamin B-12] 500 mcg PO DAILY 05/25/15 [History] Multivitamin [Men's Multi-Vitamin] 1 tab PO DAILY 05/25/15 [History] Losartan Potassium [Cozaar] 100 mg PO DAILY 12/29/20 [History] amLODIPine [Norvasc] 5 mg PO HS 12/29/20 [History] Acetaminophen Tab [Tylenol] 650 mg PO Q6HR PRN tab 12/30/20 [Rx] Atorvastatin Calcium [Lipitor] 10 mg PO HS #30 tab 12/30/20 [Rx] Clopidogrel [Plavix] 75 mg PO ONCE #30 tab 12/30/20 [Rx] Follow up Appointment(s)/Referral(s): Colten Prasad MD [Primary Care Provider] - 1 Week
--- NOTE | 2020-12-30 13:41 | P.CNNES ---
History of Present Illness Consult date: 12/30/20 Requesting physician: Fortunato Ghosh Reason for Consult: TIA History of Present Illness: Patient is a 75-year-old male came to the hospital yesterday at 10:19 AM for 2 episodes of left arm and leg paresthesias and dizziness. Patient states that the first episode occurred on Sunday when he was at a restaurant with his frie nds. They had lunch, and he drank 1 beer. It was a hot day. While he was at the restaurant, he felt dizzy, and then his left foot became numb and tingling, that extended to the left leg, the left side of the chest arm and hand, and he felt he will fall down. These paresthesias lasted for about 2-3 minutes, but the lightheadedness and dizziness lasted for another 45 minutes. He could still walk and went out of the restaurant. He did not make much of these symptoms. On 12/28/2020, 2 days later, he was golfing. It was a hot day and he was hydrated, as he has drank Gatorade. While golfing, he had a similar episode, which lasted for about 20-90 seconds. It was not as bad and subsided. He was still able to finish the golf. Next morning he spoke to his primary physician who recommended him to go to the ER. At present he has no symptoms whatsoever. Vital signs on arrival blood pressure 134/74, pulse rate 58, temperature 97.9. Computed tomography scan of the head showed no acute process. CTA of the head showed some congenital variation. There is mild atherosclerotic narrowing within the right carotid siphon. Otherwise, no large vessel intracranial arterial occlusion, significant stenosis or aneurysmal changes seen. CTA of the neck showed mild, less than 20% stenosis proximal left ICA. No hemodynamically significant carotid or vertebral artery stenosis on either side. EKG shows sinus bradycardia. CBC is normal, PT/PTT normal. Chem-7 with sodium 136, norm al renal functions. Normal hepatic panel, and troponin. UA negative. Patient's last hemoglobin A1c 5.3 on 03/26/2017. B12 978. Patient has hypertension for last 15 years, denies diabetes. He never smoked. He does not drink on a regular basis. He does not drink a lot of water as per his . Patient's home medications include allopurinol, multivitamin, B12, aspirin 81 mg, losartan and amlodipine. Review of Systems Completely unremarkable at this time. All 14 point of review systems reviewed and unremarkable. Past Medical History Past Medical History: GERD/Reflux, Hypertension Additional Past Medical History / Comment(s): gout, bowel obstruction, History of Any Multi-Drug Resistant Organisms: None Reported Past Surgical History: Orthopedic Surgery Additional Past Surgical History / Comment(s): bowel obstruction repair, left hand surgery Past Anesthesia/Blood Transfusion Reactions: No Reported Reaction Past Psychological History: No Psychological Hx Reported Smoking Status: Never smoker Past Alcohol Use History: Occasional Past Drug Use History: None Reported - Past Family History Father Family Medical History: Cancer Additional Family Medical History / Comment(s): colon tumor Sister(s) Family Medical History: GERD/Reflux, Hypertension sister 2 Family Medical History: Cancer Additional Family Medical History / Comment(s): breast cancer Medications and Allergies Home Medications Medication Instructions Recorded Confirmed Type Allopurinol 100 mg PO DAILY 05/25/15 12/29/20 History Cyanocobalamin [Vitamin B-12] 500 mcg PO DAILY 05/25/15 12/29/20 History Multivitamin [Men's Multi-Vitamin] 1 tab PO DAILY 05/25/15 12/29/20 History Losartan Potassium [Cozaar] 100 mg PO DAILY 12/29/20 12/29/20 History amLODIPine [Norvasc] 5 mg PO HS 12/29/20 12/29/20 History Acetaminophen Tab [Tylenol] 650 mg PO Q6HR PRN tab 12/30/20 Rx Atorvastatin Calcium [Lipitor] 10 mg PO HS #30 tab 12/30/20 Rx Clopidogrel [Plavix] 75 mg PO ONCE #30 tab 12/30/20 Rx Allergies Allergy/AdvReac Type Severity Reaction Status Date / Time No Known Allergies Allergy Verified 12/29/20 12:12 Physical Examination - Vital Signs Vital Signs: Vital Signs Temp Pulse Pulse Resp BP BP Pulse Ox 12/30/20 09:03 95 12/30/20 08:00 15 12/30/20 07:00 97.7 F 52 L 18 142/71 96 12/30/20 01:12 98.0 F 51 L 15 129/65 95 12/29/20 22:35 97.8 F 52 L 16 124/68 96 12/29/20 16:26 98.1 F 54 L 17 160/85 97 12/29/20 13:35 18 12/29/20 12:35 57 L 17 147/77 Intake and Output 12/29/20 12/30/20 12/30/20 22:59 06:59 14:59 Intake Total 240 Balance 240 Intake: Oral 240 Other: Weight 83.915 kg Patient is an elderly male, in no acute distress. Patient is alert awake oriented to time place and person. Speech and language functions are normal. Attention, concentration and fund of knowledge is adequate. No aphasia or dysarthria. On cranial examination, pupils are equal in size, round and reacting to light, visual castellano are full on confrontation, extraocular muscles are intact with no nystagmus. Face is symmetric, tongue protrudes to the midline. Palatal elevation and sensation normal, hearing and shoulder shrug normal, facial sensation normal. Shoulder shrug normal. On muscle strength testing, there is no pronator drift and the strength is normal in arms and legs distally and proximally. Deep tendon reflexes are 1 in the upper limbs and lower limbs and plantars downgoing bilaterally. Sensory to touch is equal with no neglect on double simultaneous stimulation. Cerebellar function showed no ataxia for [id number] testing. No dysdiadochokinesia. Tone and bulk of muscles normal. Gait normal. On general examination, there is no carotid bruit or murmur, S1-S2 audible. Abdomen is soft nontender. Chest is clear. Peripheral pulses are present. No edema. Results - Laboratory Findings CBC and BMP: 12/29/20 12:05 12/29/20 12:05 Abnormal Lab Findings: Abnormal Labs 12/29/20 12:05 Sodium 136 L Alkaline Phosphatase 34 L Assessment and Plan Assessment: * Recurrent TIA 2, manifesting with transient left-sided paresthesias. * Hypertension Plan: * At present patient has no symptoms. All symptoms have resolved. Patient has failed aspirin regimen. I would switch from aspirin regimen to Plavix 75 mg daily. * Patient's last lipid panel from 04/08/2020 performed at his primary physician's office shows total cholesterol 134, LDL 78.8, HDL 44 and triglycerides 57. Patient does have cholesterol plaque buildup in the carotid vasculature (as per report of CTA head and neck), therefore I would suggest target LDL <70. Patient will be started on Lipitor 10 mg daily. * 2-D echo showed normal left-ventricular size, borderline concentric LVH, EF is between 60-65%. Left atrium is mildly dilated. Mild aortic valve sclerosis. * Carotid Doppler showed no hemodynamically significant stenosis. Antegrade flow in both vertebral artery. * MRI of brain revealed mild cerebral atrophy. Otherwise negative MRI scan of the brain. No focal infarct. * Telemetry monitoring showing sinus rhythm with sinus bradycardia. No other arrhythmia. * Neurologically clear for discharge.
== END 2020-12-30 14:31 | disposition home or self-care (01) ==
LOC: EC 10:19 → 1SOBS 14:14 → 6NMEDSUR 17:19
PROVIDERS: ADMIT Internal Medicine; ATTEND Internal Medicine
DX: G45.9 Transient cerebral ischemic attack, unspecified (principal); R42 Dizziness and giddiness; I10 Essential (primary) hypertension; Z79.82 Long term (current) use of aspirin; Z79.899 Other long term (current) drug therapy; Z80.3 Family history of malignant neoplasm of breast; Z82.49 Family history of ischemic heart disease and other diseases of the circulatory system; Z86.73 Personal history of transient ischemic attack (TIA), and cerebral infarction without residual deficits
CPT/HCPCS: 99285; 96360; 96361; 36415; 93005; 93306; 80053; 84484; 85025; 85610; 81003; 71046; 93880; 70496; 70498; 70553; G0378 ×2; Q9967; A9585

== ENCOUNTER → 2021-04-27 | Outpatient (CLI) | payer MEDICARE ==
[2021-04-27 15:26] LABS: Basophils # (A) 0.04 X 10*3/uL (0.00-0.10); Basophils % (A) 0.8 %; Eosinophils # (A) 0.23 X 10*3/uL (0.04-0.35); Eosinophils % (A) 4.4 %; HCT 42.2 % (39.6-50.0); HGB 14.6 g/dL (13.0-17.0); Lymphocytes % (A) 28.6 %; MCH 32.1 pg (27.0-32.0); MCHC 34.6 g/dL (32.0-37.0); MCV 92.7 fL (80.0-97.0); Mean Platelet Volume 10.1 fL (9.5-12.2); Monocytes # (A) 0.46 X 10*3/uL (0.20-1.00); Monocytes % (A) 8.8 %; Neutrophils % (A) 57.2 %; Platelet Count 196 X 10*3/uL (140-440); RBC 4.55 X 10*6/uL (4.40-5.60); RDW 11.8 % (11.5-14.5); WBC 5.24 X 10*3/uL (4.50-10.00)
[2021-04-27 16:17] LABS: ALT 19 U/L (10-49); AST 19 U/L (14-35); African American GFR (CKD) 67.2 (60.0-200.0); Albumin 4.1 g/dL (3.8-4.9); Alkaline Phosphatase 43 U/L (41-126); BUN/Creat Ratio 13.75 Ratio (12.00-20.00); Blood Urea Nitrogen 16.5 mg/dL (9.0-27.0); Calcium 8.7 mg/dL (8.7-10.3); Carbon Dioxide 21.5 mmol/L (20.0-27.5); Chloride 105 mmol/L (96-109); Chol/HDL Ratio 2.33 Ratio; Creatine Kinase 103 U/L (35-257); Globulin 2.2 g/dL (1.6-3.3); Glucose 97 mg/dL (70-110); LDL Cholesterol,Calculated 45.5 mg/dL (0.0-131.0); Magnesium 2.2 mg/dL (1.5-2.4); Phosphorus 3.2 mg/dL (2.4-5.1); Potassium 4.4 mmol/L (3.5-5.5); Sodium 138 mmol/L (135-145); Total Protein 6.2 g/dL (6.2-8.2); Uric Acid 4.5 mg/dL (3.7-8.7); VLDL Calculation 15.56 mg/dL (5.00-40.00)
[2021-04-27 16:29] LABS: C Reactive Protein <0.30 mg/dL (0.00-0.80)
[2021-04-27 17:29] LABS: Erythrocyte Sedimentation Rate 6 mm/Hr (0-20)
== END | disposition home or self-care (01) ==
LOC: LABWHC1 08:49
PROVIDERS: ATTEND Internal Medicine
DX: Z00.00 Encounter for general adult medical examination without abnormal findings (principal); D64.9 Anemia, unspecified; N40.0 Benign prostatic hyperplasia without lower urinary tract symptoms; E05.90 Thyrotoxicosis, unspecified without thyrotoxic crisis or storm; E55.9 Vitamin D deficiency, unspecified; M10.9 Gout, unspecified; I12.9 Hypertensive chronic kidney disease with stage 1 through stage 4 chronic kidney disease, or unspecified chronic kidney disease; N18.30 Chronic kidney disease, stage 3 unspecified; E78.5 Hyperlipidemia, unspecified
CPT/HCPCS: 36415; 80053; 80061; 82306; 82550; 83735; 84100; 84153; 84443; 84550; 85025; 85652; 86140

== ENCOUNTER → 2022-11-01 | Outpatient (CLI) | payer MEDICARE ==
--- NOTE | 2022-11-01 09:15 | XR ---
EXAMINATION TYPE: XR chest 2V DATE OF EXAM: 11/01/2022 8:40 AM COMPARISON: Chest radiographs from 12/29/2020 TECHNIQUE: XR chest 2V Frontal and lateral views of the chest. CLINICAL INDICATION:Male, 77 years old with history of SOB, COUGH; FINDINGS: Lungs/Pleura: There is no evidence of pleural effusion, focal consolidation, or pneumothorax. Pulmonary vascularity: Unremarkable. Heart/mediastinum: Cardiomediastinal silhouette is unremarkable. Musculoskeletal: No acute osseous pathology. Other findings: None Lines/Tubes: IMPRESSION: No acute cardiopulmonary disease/process.
--- NOTE | 2022-11-01 09:20 | XR ---
EXAMINATION TYPE: XR cervical spine comp DATE OF EXAM: 11/01/2022 8:40 AM INDICATION: Patient age:Male; 77 years old; Reason for study: PAIN; COMPARISON: 11/24/2014 TECHNIQUE: The cervical spine was imaged in frontal, lateral, odontoid and bilateral oblique. FINDINGS: The osseous structures show normal alignment without evidence of an acute fracture. There are osteoph ytes noted throughout the cervical spine on the anterior and lateral aspects of the vertebral bodies. The intervertebral disk spaces are narrowed at multiple levels. Pedicles are intact. The odontoid a ppears intact. Calcification of the nuchal ligament. Multilevel neural foraminal stenosis throughout the spine worse in the upper cervical spine at C3-C4 and C4-C5. IMPRESSION: 1. No fracture or dislocation. 2. Moderate to severe degenerative disc disease changes of the cervical spine.
--- NOTE | 2022-11-01 09:22 | XR ---
EXAMINATION TYPE: XR lumbosacral spine min 4V DATE OF EXAM: 11/01/2022 8:40 AM INDICATION: Patient age:Male; 77 years old; Reason for study: PAIN; COMPARISON: 08/03/2011 TECHNIQUE: Frontal, lateral , bilateral oblique and coned in L5-S1 lateral views of the spine. FINDINGS: No evidence of any acute osseous pathology. No evidence of loss of vertebral body height i s seen. There is normal alignment of the lumbar vertebral bodies. Mild scattered disc space narrowing worse at about T12-L1. Multilevel marginal osteophyte formation throughout the visualized spine. The re is facet joint arthropathy throughout the spine. Scattered at least mild neural foraminal stenosis . Worse at L5-S1 IMPRESSION: 1. No acute fracture. 2. Mild to moderate multilevel disc degeneration.
[2022-11-01 15:59] LABS: Basophils # (A) 0.04 X 10*3/uL (0.00-0.10); Basophils % (A) 0.7 %; Eosinophils # (A) 0.19 X 10*3/uL (0.04-0.35); Eosinophils % (A) 3.3 %; HCT 42.2 % (39.6-50.0); HGB 14.2 d/dL (12.0-15.0); Lymphocytes # (A) 1.44 X 10*3/uL (0.90-5.00); Lymphocytes % (A) 25.2 %; MCH 31.2 pg (27.0-32.0); MCHC 33.6 d/dL (32.0-37.0); MCV 92.7 FL (80.0-97.0); Mean Platelet Volume 9.3 FL (9.5-12.2); Monocytes # (A) 0.59 X 10*3/uL (0.20-1.00); Monocytes % (A) 10.3 %; NRBC Per 100 WBC 0 X 10*3/uL (0.00-0.01); Neutrophils # (A) 3.44 X 10*3/uL (1.80-7.70); Neutrophils % (A) 60.2 %; Platelet Count 223 X 10*3/uL (140-440); RBC 4.55 X 10*6/uL (4.40-5.60); RDW 11.9 % (11.5-14.5); WBC 5.72 X 10*3/uL (4.50-10.00)
[2022-11-01 17:09] LABS: % Iron Saturation 33.33 (15.00-50.00); ALT 25 U/L (10-49); AST 32 U/L (14-35); Albumin 4.3 d/dL (3.8-4.9); Albumin/Globulin Ratio 1.72 Ratio (1.60-3.17); Alkaline Phosphatase 51 U/L (41-126); BUN/Creat Ratio 13.92 Ratio (12.00-20.00); Blood Urea Nitrogen 16.7 mg/dL (9.0-27.0); C Reactive Protein <0.30 mg/dL (0.00-0.80); Carbon Dioxide 22.5 mmol/L (21.6-31.8); Chloride 100 mmol/L (96-109); Creatine Kinase 387 U/L (35-257); Globulin 2.5 d/dL (1.6-3.3); Glucose 96 mg/dL (70-110); Iron 97 UG/DL (65-175); Potassium 4.6 mmol/L (3.5-5.5); Sodium 134 mmol/L (135-145); Total Bilirubin 0.5 mg/dL (0.3-1.2); Total Iron Binding Capacity 291 UG/DL (228-460); Total Protein 6.8 d/dL (6.2-8.2)
[2022-11-01 17:11] LABS: Erythrocyte Sedimentation Rate 15 mm/Hr (0-20)
[2022-11-01 17:35] LABS: DNA Double-Stranded Negative (Negative)
== END | disposition home or self-care (01) ==
LOC: LABWHC1 07:54
PROVIDERS: ATTEND Internal Medicine
DX: M50.30 Other cervical disc degeneration, unspecified cervical region (principal); M51.36 Other intervertebral disc degeneration, lumbar region; M25.78 Osteophyte, vertebrae; M48.02 Spinal stenosis, cervical region; G62.9 Polyneuropathy, unspecified; R06.02 Shortness of breath; R05.9 Cough, unspecified; R20.0 Anesthesia of skin; E56.9 Vitamin deficiency, unspecified; M35.9 Systemic involvement of connective tissue, unspecified
CPT/HCPCS: 36415; 71046; 72050; 72110; 80053; 82550; 82607; 82728; 82746; 83036; 83540; 83550; 83655; 84402; 84403; 84425; 84443; 85025; 85652; 86038; 86140; 86225

== ENCOUNTER → 2022-11-10 | Outpatient (CLI) | payer MEDICARE | END | disposition home or self-care (01) | LOC: LABWHC1 08:44 | PROVIDERS: ATTEND Internal Medicine | DX: E56.9 Vitamin deficiency, unspecified (principal); E29.1 Testicular hypofunction; M35.9 Systemic involvement of connective tissue, unspecified; G62.9 Polyneuropathy, unspecified; R53.83 Other fatigue; R06.02 Shortness of breath; R05.9 Cough, unspecified; R20.0 Anesthesia of skin | CPT/HCPCS: 36415; 83655 ==

== ENCOUNTER → 2023-05-24 | Outpatient (CLI) | payer MEDICARE ==
[2023-05-24 16:09] LABS: Basophils # (A) 0.05 X 10*3/uL (0.00-0.10); Basophils % (A) 0.9 %; Eosinophils # (A) 0.23 X 10*3/uL (0.04-0.35); HCT 42.8 % (39.6-50.0); Lymphocytes # (A) 1.78 X 10*3/uL (0.90-5.00); Lymphocytes % (A) 30.7 %; MCH 32.6 pg (27.0-32.0); Mean Platelet Volume 9.7 FL (9.5-12.2); Monocytes # (A) 0.63 X 10*3/uL (0.20-1.00); Monocytes % (A) 10.9 %; NRBC Per 100 WBC 0 X 10*3/uL (0.00-0.01); Neutrophils # (A) 3.09 X 10*3/uL (1.80-7.70); Neutrophils % (A) 53.2 %; Platelet Count 218 X 10*3/uL (140-440); RDW 12.2 % (11.5-14.5)
[2023-05-24 16:27] LABS: Erythrocyte Sedimentation Rate 9 mm/Hr (0-20)
[2023-05-24 16:45] LABS: BUN/Creat Ratio 12.69 Ratio (12.00-20.00); Blood Urea Nitrogen 16.5 mg/dL (9.0-27.0); Chloride 103 mmol/L (96-109); Chol/HDL Ratio 2.15 Ratio; Creatine Kinase 259 U/L (35-257); Glucose 94 mg/dL (70-110); LDL Cholesterol,Calculated 46.7 mg/dL (0.0-131.0); Magnesium 2.2 mg/dL (1.5-2.4); Phosphorus 3.2 mg/dL (2.4-5.1); Potassium 4.5 mmol/L (3.5-5.5); Sodium 137 mmol/L (135-145); Uric Acid 4.2 mg/dL (3.7-8.7); VLDL Calculation 13.06 mg/dL (5.00-40.00)
[2023-05-24 16:46] LABS: ALT 23 U/L (10-49); AST 29 U/L (14-35); Albumin 4.4 g/dL (3.8-4.9); Albumin/Globulin Ratio 1.83 Ratio (1.60-3.17); Alkaline Phosphatase 42 U/L (41-126); C Reactive Protein <0.30 mg/dL (0.00-0.80); Calcium 9.5 mg/dL (8.7-10.3); Carbon Dioxide 23.3 mmol/L (21.6-31.8); Globulin 2.4 g/dL (1.6-3.3); Prostate Specific Antigen 0.95 ng/mL (0.000-6.500); Total Bilirubin 0.7 mg/dL (0.3-1.2); Total Protein 6.8 g/dL (6.2-8.2)
== END | disposition home or self-care (01) ==
LOC: LABWHC1 09:06
PROVIDERS: ATTEND Internal Medicine
DX: Z00.00 Encounter for general adult medical examination without abnormal findings (principal); I12.9 Hypertensive chronic kidney disease with stage 1 through stage 4 chronic kidney disease, or unspecified chronic kidney disease; I27.20 Pulmonary hypertension, unspecified; N40.0 Benign prostatic hyperplasia without lower urinary tract symptoms; E78.5 Hyperlipidemia, unspecified; E03.9 Hypothyroidism, unspecified; E87.8 Other disorders of electrolyte and fluid balance, not elsewhere classified; M10.9 Gout, unspecified; N18.30 Chronic kidney disease, stage 3 unspecified; D63.1 Anemia in chronic kidney disease
CPT/HCPCS: 36415; 80053; 80061; 82306; 82550; 83735; 84100; 84153; 84443; 84550; 85025; 85652; 86140

== ENCOUNTER → 2023-06-14 | Outpatient (CLI) | payer MEDICARE ==
--- NOTE | 2023-06-14 09:24 | US ---
EXAMINATION TYPE: US abdomen complete DATE OF EXAM: 06/14/2023 COMPARISON: NONE CLINICAL INDICATION: Male, 78 years old with history of R10.9,R10.13 EPIGASTRIC PAIN; Patient states having decreased appetite and unable to eat much. TECHNIQUE: Multiple sonographic images of the abdomen are obtained. FINDINGS: EXAM MEASUREMENTS: Liver Length: 14.1 cm Gallbladder Wall: 0.2 cm CBD: 0.4 cm Spleen: 9.0 cm Right Kidney: 9.8 x 5.3 x 5.9 cm Left Kidney: 10.8 x 4.5 x 5.8 cm IMMIGRATION INVESTIGATOR NOTES: limited due to overlying bowel gas Pancreas: Echogenic in appearance, Head and tail not well seen Liver: Heterogenous, limited visualization, scanned through ribs . No dilated ducts, cystic structu res or masses. Gallbladder: no wall thickening or stones Evidence for sonographic Langley's sign: neg CBD: wnl Spleen: Limited visualization Right Kidney: Lateral superior anechoic lesion - 0.8 x 0.7 x 0.7 cm Left Kidney: Mid anechoic lesion = 6.0 x 6.8 x 6.1 cm Upper IVC: wnl Abd Aorta: No AAA visualized at time of scan The liver is homogenous. The intrahepatic portion of the IVC and proximal abdominal aorta are within normal limits. There is no evidence of cholelithiasis. Common bile duct is unremarkable. The visu alized portions of the pancreas are homogenous. The spleen is unremarkable. Kidneys are symmetric a nd free of hydronephrosis. No renal lesions are seen. IMPRESSION: 1. No evidence for acute process. 2. 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 3. Bilateral simple appearing renal cysts.
== END | disposition home or self-care (01) ==
LOC: RADUSWWP 08:42
PROVIDERS: ATTEND Family Medicine
DX: N28.1 Cyst of kidney, acquired (principal); K76.89 Other specified diseases of liver; R10.13 Epigastric pain
CPT/HCPCS: 76700

== ENCOUNTER → 2023-09-26 10:52 | Day surgery (SDC) | payer MEDICARE ==
[2023-09-24 16:14] VITALS: BMI 25.1
[2023-09-26] MEDS: LACTATED RINGERS 1,000 ML IV SCH (09:32)
[2023-09-26 09:44] VITALS: TEMP 97.1
--- NOTE | 2023-09-26 10:11 | P.PCN ---
Date of Procedure: 09/26/23 Procedure(s) Performed: BRIEF HISTORY: Patient is a 78-year-old, pleasant, white male scheduled for an upper endoscopy as a part evaluation of epigastric discomfort, heartburn and early satiety for the last 2 years duration. He was recently started on Prilosec 20 mg daily and symptoms are gradually improving.. PROCEDURE PERFORMED: Esophagogastroduodenoscopy with biopsy. PREOPERATIVE DIAGNOSIS: Chronic epigastric pain/early satiety and heartburn of 2 years duration. IV sedation per anesthesia. PROCEDURE: After informed consent was obtained, the patient was brought into the endoscopy unit. IV sedation was administered by Anesthesia under continuous monitoring. Initially the Olympus GIF-140 video endoscope was inserted into the mouth. Esophagus intubated without any difficulty. It was gradually advanced into the stomach and duodenum and carefully examined. The bulb and the second part of the duodenum appeared normal. Biopsies were done from the duodenum to evaluate for celiac disease. The scope at this time was withdrawn to the stomach, adequately insufflated with air, and upon careful examination, mucosa of the antrum had linear areas of erythema consistent with gastritis and biopsies were done from this area. Mucosa of the, body, cardia and the fundus appeared normal. The scope was then withdrawn into the esophagus. The GE junction was located at 43 cm from the incisors. There were 2 superficial erosions in the distal esophagus consistent with LA grade B reflux esophagitis the esophagus appeared normal. There were no erosions or ulcerations seen and the patient tolerated the procedure well. IMPRESSION: 1. Mild diffuse antral gastritis. 2. Superficial erosions in the distal esophagus consistent with at the GE junction consistent with LA grade B reflux esophagitis. RECOMMENDATIONS: The findings of this examination were discussed with the patient as well as his family. With the biopsy results. He was advised to continue with Prilosec 20 mg daily and follow antireflux measures.. Continue with small frequent meals.
[2023-09-26 10:40] VITALS: BP 128/68; PULSE 54; RESP 16
[~2023-09-26 10:52] MED LIST: LIDOCAINE 1% (10MG/ML) FOR IV START INTRADERMA PRN; PROPOFOL 10 MG/ML 20 ML VIAL IV ONE
== END | disposition home or self-care (01) ==
LOC: ORWHC2ENDO 10:52
PROVIDERS: ATTEND Internal Medicine Gastroenterology
DX: K29.50 Unspecified chronic gastritis without bleeding (principal); G89.29 Other chronic pain; I10 Essential (primary) hypertension; E78.5 Hyperlipidemia, unspecified; K21.9 Gastro-esophageal reflux disease without esophagitis; Z86.73 Personal history of transient ischemic attack (TIA), and cerebral infarction without residual deficits; Z79.02 Long term (current) use of antithrombotics/antiplatelets; Z79.899 Other long term (current) drug therapy
CPT/HCPCS: 88305; 43239; J2704

== ENCOUNTER → 2024-12-01 | Outpatient (CLI) | payer MEDICARE ==
--- NOTE | 2024-12-01 09:38 | MR ---
EXAMINATION TYPE: MR cervical spine wo/w con DATE OF EXAM: 12/01/2024 9:18 AM COMPARISON: None. CLINICAL INDICATION: Male, 79 years old with history of M54.12 CERVICAL RADICULOPATHY, Neck and head pain, left arm weakness. TECHNIQUE: Multiplanar MultiSpin echo imaging of the cervical spine was performed. CONTRAST: The patient was injected with 8.5 mL intravenous Gadobutrol gadolinium contrast. FINDINGS: C2-C3: No evidence for degenerative disc disease. No disc bulge/herniation or protrusion. No Canal stenosis. Foramina are patent bilaterally. C3-C4: Moderate disc desiccation with circumferential disc bulge. Effacement of ventral thecal sac wi th ventral cord contact and mild to moderate central stenosis. There is at least moderate bilateral f oraminal encroachment. C4-C5: Moderate disc desiccation with circumferential disc bulge. Effacement of ventral thecal sac wi th ventral cord contact and mild to moderate central stenosis. There is at least moderate bilateral f oraminal encroachment. C5-C6: Moderate disc desiccation with circumferential disc bulge. Effacement of ventral thecal sac wi th without cord contact or central stenosis. There is at least moderate bilateral foraminal encroachm ent. C6-C7: Very little disc material is seen at this level. Could be related to partial congenital fusion or postoperative fusion. Correlate clinically. C7-T1: No evidence for degenerative disc disease. No disc bulge/herniation or protrusion. No Canal stenosis. Foramina are patent bilaterally. No cervical spine fracture. There is normal alignment. Cervical spinal cord is of normal signal. C raniovertebral junction relationships are within normal limits. No pathologic enhancement. IMPRESSION: 1. Multilevel degenerative disc disease with multilevel central stenosis and foraminal encroachment a s outlined above. [facility], , 12/01/2024 9:35 AM
== END | disposition home or self-care (01) ==
LOC: RADMRIMAIN 08:27
PROVIDERS: ATTEND Psychiatry & Neurology Neurology
DX: M50.11 Cervical disc disorder with radiculopathy, high cervical region (principal); M48.02 Spinal stenosis, cervical region
CPT/HCPCS: 72156; A9585